=== PATIENT | female | born 1940 | race Caucasian/White ===

== ENCOUNTER 2016-05-09 13:44 | Emergency (ER) | payer MEDICARE, OTHER ==
[~2016-05-09] VITALS: Wt 80.0 kg
[2016-05-09] MEDS ORDERED: KETOROLAC 15 MG INJ IV STA (18:14)
[2016-05-09] MEDS ORDERED: ALPRAZOLAM 0.25 MG TAB PO ONE (18:30)
--- NOTE | 2016-05-09 19:01 | RADRPT ---
PROCEDURE: XR Chest. CLINICAL INDICATION: Blunt trauma. TECHNIQUE: Single frontal view of the chest was obtained COMPARISON: None FINDINGS: Cardiomegaly. Bilateral patchy air space disease and atelectasis. Possible small left base pleural effusion. There is no pneumothorax. No evident osseous injury on this limited series. IMPRESSION: Cardiomegaly and mild failure, with possible small lung base pleural effusion. RPTAT: [facility] Physician Rhianna Date Time Electronically viewed and signed by Satya Rose Physician on 05/09/2016 19:01 PARO/
--- NOTE | 2016-05-09 20:06 | RADRPT ---
PROCEDURE: CT head, without contrast. CLINICAL INDICATION: Clinical presentation of intracranial hemorrhage. TECHNIQUE: Noncontrast CT examination of the head, with axial, sagittal and coronal reformatted im ages. Automated dose exposure control was employed. CTDI: 43.27 and DLP: 720.23. COMPARISON: None. FINDINGS: Chronic changes of atrophy and small vessel disease white matter. Note acute hemorrhage. Subarachnoid spaces are substantially preserved and symmetric. Ventricles are unremarkable. Septum cava and vergae variants. No mass effect. Carbone-white matter distinction is preserved without evident decreased attenuation t o suggest acute or recent infarct. Sinuses and osseous structures are unremarkable. IMPRESSION: Chronic changes of atrophy and small vessel disease white matter, and otherwise, no acute process in the head. RPTAT: [facility] Physician Rhianna Date Time Electronically viewed and signed by Physician Rhianna on 05/09/2016 20:06 PARO/
[2016-05-09] MEDS ORDERED: MELO7.5O PO (20:18)
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
[2016-05-09 20:54] VITALS: BP 161/93; PULSE 61; RESP 20; TEMP 98.5
== END 2016-05-09 21:04 | disposition home or self-care (01) ==
LOC: E/R 13:44
DX: S46.811A Strain of other muscles, fascia and tendons at shoulder and upper arm level, right arm, initial encounter (principal); I10 Essential (primary) hypertension; E11.9 Type 2 diabetes mellitus without complications; R51 Headache; W18.09XA Striking against other object with subsequent fall, initial encounter; Y92.9 Unspecified place or not applicable
CPT/HCPCS: 70450; 71010; J1885; 36415; 96372